=== PATIENT | male | born 1955 | race Caucasian/White ===

== ENCOUNTER 2019-01-09 10:30 | Inpatient (IN) | payer MEDICARE, MEDICAID | END 2019-01-13 18:20 | disposition home or self-care (01) | LOC: PCU 3S 01-12 19:35 → PAS IN 10:30 → CICU 2S 14:59 → PACU 15:22 → CICU 2S 18:00 | PROC: 03CK0ZZ Extirpation of Matter from Right Internal Carotid Artery, Open Approach (ICD-10-PCS; principal; 2019-01-09 12:36) | DX: I65.21 Occlusion and stenosis of right carotid artery (principal); I13.0 Hypertensive heart and chronic kidney disease with heart failure and stage 1 through stage 4 chronic kidney disease, or unspecified chronic kidney disease; I50.40 Unspecified combined systolic (congestive) and diastolic (congestive) heart failure; N18.3 Chronic kidney disease, stage 3 (moderate) ==